=== PATIENT | male | born 1965 | race Caucasian/White ===

== ENCOUNTER → 2019-07-14 06:41 | Outpatient (CLI) | payer OTHER, SELFPAY ==
[2019-07-14 08:48] LABS: BUN Creatinine Ratio 14.4 (6-22); Blood Urea Nitrogen 13 mg/dL (9-20); Calcium 9.5 mg/dL (8.4-10.2); Carbon Dioxide 24 mmol/L (22-32); Chloride 102 mmol/L (98-107); Cholesterol 143 mg/dL (140-199); Estimated Glomerular Filt Rate > 60.0 mL/min (>60); Glucose 145 mg/dL (70-100); HDL Cholesterol 24 mg/dL (40-60); HEMOLYSIS < 15 (0-50); LDL Cholesterol Calculated 81 mg/dL (<100); Potassium 4.2 mmol/L (3.4-5.1); Sodium 138 mmol/L (137-145); Triglycerides 188 mg/dL (35-150)
[2019-07-14 09:17] LABS: Prostate Specific Antigen 0.477 ng/mL (0.10-4.00)
== END ==
PROVIDERS: Visit Provider Internal Medicine
DX: I10 Essential (primary) hypertension (principal); Z12.5 Encounter for screening for malignant neoplasm of prostate; E78.5 Hyperlipidemia, unspecified
CPT/HCPCS: 36415; 80048; 80061; 84153

== ENCOUNTER → 2019-08-13 09:29 | Outpatient (CLI) | payer OTHER, SELFPAY ==
[2019-08-13 10:07] LABS: Hemoglobin A1C% w Est Avg Glu 6.8 % (4.0-6.0)
[2019-08-13 10:46] LABS: Glucose 97 mg/dL (70-100)
== END ==
PROVIDERS: Visit Provider Internal Medicine
DX: R73.01 Impaired fasting glucose (principal)
CPT/HCPCS: 36415; 82947; 83036

== ENCOUNTER → 2019-11-21 08:35 | Outpatient (CLI) | payer BC, OTHER, SELFPAY ==
[2019-11-21 09:57] LABS: BUN Creatinine Ratio 18.9 (6-22); Blood Urea Nitrogen 17 mg/dL (9-20); Calcium 9.5 mg/dL (8.4-10.2); Carbon Dioxide 26 mmol/L (22-32); Chloride 101 mmol/L (98-107); Cholesterol 151 mg/dL (140-199); Estimated Glomerular Filt Rate > 60.0 mL/min (>60); Glucose 108 mg/dL (70-100); HDL Cholesterol 21 mg/dL (40-60); HEMOLYSIS < 15 (0-50); LDL Cholesterol Calculated 100 mg/dL (<100); Potassium 4.3 mmol/L (3.4-5.1); Sodium 137 mmol/L (137-145); Triglycerides 149 mg/dL (35-150)
== END ==
PROVIDERS: PCP Internal Medicine; Visit Provider Internal Medicine
DX: R73.01 Impaired fasting glucose (principal); E78.2 Mixed hyperlipidemia
CPT/HCPCS: 36415; 80048; 80061; 83036

== ENCOUNTER → 2021-03-19 14:38 | Outpatient (ROUT) | payer BC, OTHER, SELFPAY ==
[2021-03-19 16:51] LABS: Creatinine Urine Random 72.7 mg/dL
[2021-03-19 17:07] LABS: Microalbumin Urine Random < 0.6 mg/dL (0-1.6)
== END ==
PROVIDERS: PCP Internal Medicine; Visit Provider Internal Medicine
DX: E11.9 Type 2 diabetes mellitus without complications (principal)
CPT/HCPCS: 82043; 82570

== ENCOUNTER → 2021-08-22 15:00 | Outpatient (CLI) | payer BC, OTHER, SELFPAY ==
[2021-08-22 15:35] LABS: COVID19 -Nasal RAPID Negative (Negative)
== END ==
PROVIDERS: PCP Internal Medicine; Visit Provider Surgery
DX: Z01.812 Encounter for preprocedural laboratory examination (principal); Z20.822 Contact with and (suspected) exposure to COVID-19
CPT/HCPCS: 87635; C9803

== ENCOUNTER 2021-08-23 07:44 | Day surgery (SDC) | payer BC, OTHER, SELFPAY ==
[2021-08-23 08:10] VITALS: BMI 33.7
[2021-08-23 08:25] VITALS: BP 155/100; PULSE 79; RESP 16; TEMP 36.6; O2SAT 98
[2021-08-23] MEDS: LACTATED RINGERS 1,000 ML 42 ML IV (08:36)
--- NOTE | 2021-08-23 08:53 | PM.HP.1 ---
History of Present Illness History of Present Illness Date Patient Seen: 08/23/21 Time Patient Seen: 08:53 Chief complaint: SDC Narrative: Colon cancer screening, h/o colon polyps overdue for 5 year colonoscopy. Patient History Medical History Hypertension Family & Social History Social History: household members spouse Tobacco & Substance use: Tobacco type cigarettes Smoking Status Former smoker alcohol intake frequency holiday/special occasion Substance Use Type does not use Meds Home Medications and Allergies Home Medications Medication Instructions Recorded Confirmed Type FOLIC ACID/VIT A/VIT B1/VIT 1 tab PO Q DAY #0 04/29/11 History (#MULTIVITAMIN) sodium,potassium,mag sulfates 17.5 See Rx Instructions PO .COMPLEX 07/25/21 Rx gram-3.13 gram-1.6 gram oral soln #354 ml (Suprep Bowel Prep Kit) losartan 100 mg PO DAILY 08/23/21 08/23/21 History Allergies Allergy/AdvReac Type Severity Reaction Status Date / Time From Percocet Allergy Mild RASH Uncoded 08/23/21 08:23 Exam Vital Signs (past 8 hours): - 08/23/21 08:25 Temperature 97.8 F Pulse Rate 79 Respiratory Rate 16 Blood Pressure 155/100 H Pulse Oximetry 98 Oxygen Delivery Method Room Air Const General: cooperative and comfortable Orientation: oriented x3 [facility] Head: normocephalic and atraumatic Ears: hearing grossly normal bilaterally Eyes Sclera: sclerae normal Neck Neck: normal visual inspection and trachea midline Resp Effort & Inspection: normal respiratory effort and able to speak in complete sentences Auscultation: clear to auscultation bilaterally Cardio Rate: regular rate Rhythm: regular rhythm GI Inspection: normal to inspection Palpation: soft Skin General: dry skin and lichenification Neuro General: patient alert and patient oriented x3 Cognition: normal cognition Extrem General: normal to inspection Psych Appearance: grossly normal Judgment: judgment good Assessment & Plan Assessment & Plan narrative: History of colon polyps. colonoscopy with moderate sedation COVID-19 COVID-19 status: Negative Time Spent With Patient Time with patient: less than 30 minutes Critical Care time: I spent a total of [] minutes of critical care time on this patient's care today; this time is exclusive of procedural time.
[2021-08-23] MEDS: MIDAZOLAM 5 MG/5 ML VIAL IV (09:03)
[2021-08-23] MEDS: fentaNYL 250 MCG/5 ML INJ IV (09:03)
--- NOTE | 2021-08-23 09:22 | PM.OP.ENDO ---
Operative Date/Time/Diagnoses Date of procedure: 08/23/21 Time of procedure: 09:22 Pre-op diagnosis: h/o colon polyps Post-op diagnosis: same Procedure & Clinicians Study performed: Colonoscopy with moderate sedation Same procedure as scheduled: Yes Indications: History of colon polyps Surgeon: Amberly Mcgovern Procedure Notes SCOAP/Timeout: Done Procedure in detail: Preop diagnosis: History of colon polyps Postop diagnosis: Same Operative procedure: Colonoscopy with moderate sedation Surgeon: Dolores Mcgovern MD Findings: No polyps, no diverticulosis Anesthetic: 4 mg Versed 50 micro g fentanyl Sedation minutes: 17 Specimen(s): none sent Complications: none Post-procedure Recommendations: Colonscopy in 5 years Follow up: as needed Disposition: PACU
[2021-08-23 09:27] VITALS: BP 137/87; PULSE 72; RESP 12; TEMP 36.3; O2SAT 93
[2021-08-23 09:31] VITALS: BP 128/87; PULSE 71; RESP 15; O2SAT 95
[2021-08-23 09:36] VITALS: BP 137/88; PULSE 85; RESP 16; TEMP 36.2; O2SAT 99
[2021-08-23 09:41] VITALS: BP 131/90; PULSE 83; RESP 16; O2SAT 96
== END 2021-08-23 09:55 | disposition home or self-care (01) ==
PROVIDERS: PCP Internal Medicine; Referring Provider Surgery; Visit Provider Surgery
PROC: 0DJD8ZZ Inspection of Lower Intestinal Tract, Via Natural or Artificial Opening Endoscopic (ICD-10-PCS; CPT 45378; principal; 2021-08-23 09:15)
DX: Z12.11 Encounter for screening for malignant neoplasm of colon (principal); Z86.010 Personal history of colon polyps; I10 Essential (primary) hypertension
CPT/HCPCS: 45378; J2250; J3010

== ENCOUNTER → 2022-01-18 13:52 | Outpatient (CLI) | payer BC, OTHER, SELFPAY | PROVIDERS: PCP Internal Medicine; Referring Provider Podiatrist; Visit Provider Podiatrist | DX: Z01.818 Encounter for other preprocedural examination (principal) | CPT/HCPCS: 93005; 93010 ==

== ENCOUNTER → 2022-02-12 15:38 | Outpatient (CLI) | payer BC, OTHER, SELFPAY ==
[2022-02-12 18:09] LABS: COVID19 -Nasal RAPID POSITIVE (Negative)
== END ==
PROVIDERS: PCP Internal Medicine; Visit Provider Family Medicine Sleep Medicine
DX: U07.1 COVID-19; Z20.822 Contact with and (suspected) exposure to COVID-19
CPT/HCPCS: 87635; C9803

== ENCOUNTER → 2022-03-12 09:55 | Outpatient (CLI) | payer BC, OTHER, SELFPAY ==
[2022-03-12 11:26] LABS: COVID19 -Nasal RAPID Negative (Negative)
== END ==
PROVIDERS: PCP Internal Medicine; Visit Provider Family Medicine Sleep Medicine
DX: Z20.822 Contact with and (suspected) exposure to COVID-19 (principal)
CPT/HCPCS: 87635; C9803

== ENCOUNTER 2022-03-14 07:38 | Day surgery (SDC) | payer BC, OTHER, SELFPAY ==
[2022-03-11 12:13] VITALS: BMI 32.9
[2022-03-14] VITALS (9 sets, daily range): BP systolic 125–152; BP diastolic 68–93; PULSE 65–81; RESP 12–18; TEMP 36.1–36.6; O2SAT 96–100; BMI 32.9
[2022-03-14] MEDS: LACTATED RINGERS 1,000 ML 84 ML IV ×2 (08:18→11:05)
--- NOTE | 2022-03-14 10:19 | SUR.OPER ---
Supine on padded OR bed, head on pillow, arms secured on padded arm boards at <90 degrees abduction, legs uncrossed, safety belt at thigh, tape over blanket over lower legs.
--- NOTE | 2022-03-14 10:21 | PM.PREOP ---
Pre-operative Note COVID-19 COVID-19 status: Negative Result date/Date tested (Pos, Neg/Pending): 03/12/22 Interval Note History & Physical reviewed/Exam performed by Physician: Yes Changes to H&P: No
--- NOTE | 2022-03-14 10:22 | P.OP_ITS ---
Operative Date/Time/Diagnoses Date of procedure: 03/14/22 Time of procedure: 10:22 Pre-op diagnosis: Right great toe arthritis, second hammertoe pain Post-op diagnosis: same Procedure & Clinicians Procedure: Right first metatarsophalangeal joint arthrodesis Right second toe interphalangeal joint arthrodesis Same procedure as scheduled: Yes Indications: 57-year-old male with painful ongoing contracture to the right 2nd toe and worsening arthritis to the right great toe. Conservative measures failed to alleviate his pain and he wished to have surgical intervention at this time. We spoke of the risks, potential complications, as well as expected outcomes and alternatives. Consent was signed, no contraindications to the procedure at this time. Surgeon: Stephanie Noel Click Yes if Unassisted: Yes Anesthesia Type: General Operative Notes Closure Type: primary Specimen(s): none sent Applied: implant(s) ([place] MTP plate, 4.0 cannulated screw, 3.5 screws (6), 0.054 k-wire, [employer] DBM putty, Patricia cancellous bone chips) Estimated Blood Loss (mL): 20 Blood products transfused: none Tourniquet time (min): 117 Procedure in detail: The patient was brought to the operating room and placed on the operating table in the supine position. A tourniquet was placed about the patient's right thigh. After induction of general anesthesia the foot and ankle were prepped and draped in the usual aseptic manner. The tourniquet was inflated. Incision was made over the dorsal aspect of the right 1st metatarsophalangeal joint. The incision was deepened through subcutaneous tissues being careful to identify and retract all vital neurovascular structures. All bleeders were cauterized and ligated necessary. A significant amount of degenerative exostoses were noted to the dorsal medial and lateral 1st metatarsophalangeal joint, and a tight extensor complex. The capsule had quite a bit of scar tissue within it. The extensor tendon complex was very tight so the decision was made to do a Z-type lengthening to the EHL. The saw was used to resect the prominent areas of spurring at the 1st metatarsophalangeal joint. The joint showed angulated flattening with loss of the articular cartilage. The phalangeal base centrally had become angulated and more conical with the relaxed position of the hallux somewhat elevated onto the metatarsal head. A saw was used to resect the base of the first metatarsal head and the same to the base of the proximal phalanx, but at an angle. With the loss of the central portion of the proximal phalangeal base, additional curretage and subchondral drilling was performed at the base, and further angulational resection was performed at the head of the proximal phalanx. Subchondral drilling was performed to either side The area was irrigated with copious amount of normal sterile saline. Temporary fixation across the joint was placed with a guidewire and this was checked under C-arm to be in appropriate alignment. The decision was made to keep his 1st MTPJ at a slightly elevated/contracted status for the arthrodesis as this actually ended up to be the easiest purchase for the toe when loaded. A mix of DBM and cancellous bone chips was placed into the small central area of bone loss of the proximal phalangeal base. A 5 degree plate was chosen and any further reduction of prominences periarticularly were performed with a rasp and rongeur. Using the aid of fluoroscopy, the guide wire was used as cannulation for the drill for a lag screw from the proximal medial to distal lateral 1st metatarsal phalangeal joint. Confirmed appropriate in all 3 planes, a partially threaded screw was placed and the guidewire removed. Good strength and reduction of the former joint. Plate was placed and with the aid of fluoroscopy a series of locking/nonlocking screws were placed across the plate and reinforced the joint well. Again was verified on C-arm. The area is gently irrigated with normal sterile saline. EHL was repaired in its new lengthened state with 3-0 Vicryl. Next, attention was directed to the second toe where an incision was made over the dorsal second distal interphalangeal joint through to the metatarsophalangeal joint. Incision was deepened through subcutaneous tissues b eing careful to identify and retract all vital neural and vascular structures. All bleeders were cauterized and ligated as necessary. A extensor tenotomy was performed over the distal and proximal interphalangeal joints. This exposed the underlying joints. A saw blade was used to resect the head of the proximal and intermediate phalanges and base of the intermediate and distal phalanges. There was still tension at the MTPJ so a capsulotomy was performed here and it was noted that there had been extensive contracture such that the base of the proximal phalanx was sitting atop the joint. A little bit of synovitis was noted here. This was gently removed and the joint was mobilized but the determination was made that based on the quality of the head and neck of the metatarsal and with the new mobility at the joint, a metatarsal osteotomy would not be performed. A K-wire was used to be placed in the base of the intermediate phalanx and was run out the distal tip of the toe. The K-wire was then removed and placed at the tip of the 2nd toe percutaneously and with following the same area that had been previously drilled, placed across the distal interphalangeal joint and then proximal interphalangeal joint. Lining up the MTPJ, this and placed across the metatarsophalangeal joint. This was loaded and showed to be good alignment. The remaining excess wire was gently bent, the excess removed, and capped. Once again verified under C-arm and final pictures were taken. The tourniquet was deflated and prompt hyperemic response was seen to the foot. Extensor closure was performed to the 2nd toe using Vicryl. Subcutaneous closure to both incisions were performed using Vicryl and nylon was used to close the skin. A sterile lightly compressive dressing was placed on the foot and he was placed in his postoperative shoe. He was transferred to the PACU with vital signs stable and vascular status intact. Complications: none Post-operative Condition: stable Disposition: PACU Plan for aftercare: Following a period of postoperative monitoring, the patient will be discharged to home on written and oral postoperative instructions including keeping the dressing dry and intact, no weight-bearing to the operative foot, icing and elevating the foot when seated home. DVT prevention techniques have been reviewed. For the 1st postoperative visit the dressing will be changed and close to the 4th postoperative week we will likely perform foot foot x-rays.
[2022-03-14] MEDS: CEFAZOLIN 2 GM/20 ML SYRINGE IV (10:46)
[2022-03-14] MEDS: BUPIVACAINE 0.5% (PF) VIAL 30 ML INJ (10:59)
[2022-03-14] MEDS: BACITRACIN OINT 0.9 GM PCKT 1 APPLIC TOP (13:13)
== END 2022-03-14 14:35 | disposition home or self-care (01) ==
PROVIDERS: PCP Internal Medicine; Referring Provider Podiatrist; Visit Provider Podiatrist
PROC: (CPT 28750; principal; 2022-03-14 09:45)
DX: M19.071 Primary osteoarthritis, right ankle and foot (principal); M20.41 Other hammer toe(s) (acquired), right foot; M65.9 Synovitis and tenosynovitis, unspecified
CPT/HCPCS: 28750; 28285; C1713; C1889; J0690; J2250; J2704; J3010

== ENCOUNTER → 2025-07-24 18:51 | Outpatient (CLI) | payer BC, OTHER, SELFPAY ==
--- NOTE | 2025-07-24 19:33 | DI.MRI.S_ITS ---
PROCEDURE: MR LUMBAR SPINE WO CON INDICATIONS: PAIN TECHNIQUE: Noncontrast sagittal T1 spin echo and T2 fast echo, coronal T2, sagittal STIR, and T2 fast spin echo through the lumbar spine. COMPARISON: None. FINDINGS: Image quality: Excellent. Alignment and Curvature: No plain films are available for comparison, for numbering purposes. Thus, for the purposes of this examination, 5 lumbar type vertebral bodies will be presumed, as denoted on the montage panel. This should be confirmed and correlated with plain films, prior to any lumbar spinal intervention. Loss of normal lumbar lordosis. 2 mm of retrolisthesis of L1 on L2. 4 mm of retrolisthesis of L2 on L3. 3 mm of retrolisthesis of L3 on L4. 3 mm of retrolisthesis of L4 on L5. 4 mm of retrolisthesis of L5 on S1. Bone Marrow: Marrow is of normal overall signal. No acute vertebral body compression fractures. Moderate reactive signal within the endplates adjacent to the L4-L5 intervertebral disc. Mild reactive signal within the remaining lumbar and lower thoracic endplates. Spinal Cord: Conus medullaris terminates at the L1 level. Visualized cord demonstrates normal signal and size. Paraspinous Soft Tissues: No paravertebral masses. T12-L1: Normal appearance. L1-L2: Mild disc desiccation. Mild facet and ligamentum flavum hypertrophy. Mild epidural lipomatosis. Mild canal stenosis. Mild bilateral foraminal stenosis. L2-L3: Moderate disc desiccation. Mild disc height loss and diffuse disc bulge. Mild facet and ligamentum flavum hypertrophy. Mild epidural lipomatosis. Mild canal stenosis. Mild bilateral foraminal stenosis. L3-L4: Moderate disc height loss and desiccation. Mild diffuse disc bulge. Mild facet and ligamentum flavum hypertrophy. Mild epidural lipomatosis. Mild canal stenosis. Moderate bilateral foraminal stenosis. L4-L5: Mild disc desiccation and diffuse disc bulge. Mild facet and ligamentum flavum hypertrophy. Mild canal stenosis. Moderate right and moderate to severe left foraminal stenosis. Mild left L4 nerve root compression. L5-S1: Moderate disc height loss and desiccation. Mild diffuse disc bulge. Mild bilateral facet hypertrophy. Mild canal stenosis. Moderate to severe bilateral foraminal stenosis with mild L5 nerve root compression bilaterally. IMPRESSION: 1. Multilevel degenerative disc and facet disease, as well as ligamentum flavum hypertrophy and epidural lipomatosis. 2. Mild multilevel canal stenoses. 3. Multilevel foraminal stenoses, worst at L4-L5 and L5-S1 where there is associated intraforaminal nerve root compression. Recommend correlation with clinical symptoms to ascertain relevance of these findings. 4. 5 lumbar type vertebral bodies were presumed for the current report. Plain films of the lumbar spine are recommended for confirmation, prior to any lumbar spinal intervention. Dictated by: Jeff Glaser M.D. on 07/25/2025 at 11:31 Approved by: Jeff Glaser M.D. on 07/25/2025 at 11:34
== END ==
LOC: MRI 18:52
PROVIDERS: PCP Internal Medicine; Referring Provider Nurse Practitioner Family; Visit Provider Nurse Practitioner Family
DX: M51.16 Intervertebral disc disorders with radiculopathy, lumbar region (principal); M51.17 Intervertebral disc disorders with radiculopathy, lumbosacral region; M48.061 Spinal stenosis, lumbar region without neurogenic claudication; M48.07 Spinal stenosis, lumbosacral region; M47.26 Other spondylosis with radiculopathy, lumbar region; M47.27 Other spondylosis with radiculopathy, lumbosacral region; M54.9 Dorsalgia, unspecified; E88.2 Lipomatosis, not elsewhere classified
CPT/HCPCS: 72148